=== PATIENT | male | born 1980 | race African-American/Black ===

== ENCOUNTER 2016-12-30 11:30 | Inpatient (IN) | payer OTHER ==
[~2016-12-30] VITALS: Ht 198.1 cm; Wt 100.7 kg
--- NOTE | ~2016-12-30 | HP ---
Unit #: [id number] #: [id number] Patient: ALIVIA WAGNER [id number] [facility]. [place], [place] [address] [id number] I MR#: [id number] NAME: ALIVIA WAGNER. ROOM: 76520 Age: 36 Sex: M Admission Date: 12/30/2016 : 1980 Attending Physician: Bernardo Martell M.D. Primary Care Physician: No Primary Care Physician HISTORY AND PHYSICAL HISTORY AND EXAM Mr. Wagner is an otherwise healthy 36-year-old male who presented to the emergency room with a swollen tender left forearm with spontaneous drainage of a necrotizing infection. He states this began about a week ago as sort of a pimple or a boil and he was putting compresses on it. It finally has spontaneously drained but the drainage is the foul smell of underlying necrosis. He denies any trauma, IV drug abuse, spider bite or other injury. He does not have a history of soft tissue infections. 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 He denies any fever or chills but is having exquisite pain and cannot straighten his left arm. He does have normal motor and sensory function of the hand. PAST MEDICAL HISTORY He denies any prior medical history. ALLERGIES No allergies to medication. MEDICATIONS No medications. FAMILY HISTORY He is unaware of any chronic or inheritable diseases. 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 He smokes about two packs a day, denies the use of alcohol. He is an occasional user of marijuana. REVIEW OF SYSTEMS No fever, chills or night sweats. PHYSICAL EXAMINATION VITAL SIGNS: On exam temperature is 98.6, pulse 111, respirations 16, blood pressure 146/96. GENERAL: Awake, alert and oriented and pleasant and cooperative. HEENT: Unremarkable. CARDIAC EXAM: Regular rhythm without murmur. LUNGS: Clear. ABDOMEN: Is soft. EXTREMITIES: Left forearm from the wrist to the mid upper arm is swollen. It is erythematous and tender. There is an opening medically with very necrotic foul-smelling drainage. Again, he has normal motor and sensory to the hand. Unit #: [id number] #: [id number] Patient: ALIVIA WAGNER NEUROLOGICALLY: Grossly intact. DIAGNOSTIC STUDIES LABORATORY: Hemoglobin 11.6, white count 9200, platelets 287,000. Comprehensive metabolic panel generally unremarkable. Lactic acid is 1.6. ASSESSMENT AND PLAN Patient has a severe necrotizing infection of the left forearm radiating up to the mid upper extremity. He may have underlying necrotizing fasciitis or myonecrosis. I discussed with the patient that he needs an extensive incision, drainage and debridement and he will require some long-term postoperative wound care. He understands and agrees to proceed. I have spoken to the operating room. We plan on emergent incision, drainage and debridement. Dictated by Bernardo Martell M.D. GERARD/yogi TD: 12/30/2016 17:07 JOB #: [id number] HISTORY AND PHYSICAL Page 1 of 1 X Bernardo Martell MD HISTORY AND PHYSICAL
--- NOTE | ~2016-12-30 | OR ---
Unit #: [id number] #: [id number] Patient: ALIVIA WAGNER [id number] [address] [place], [place] [address] [id number] I MR#: [id number] NAME: ALIVIA WAGNER. ROOM: 220 Date of Procedure: 12/30/2016 Admission Date: 12/30/2016 Surgeon: Bernardo Martell M.D. : 1980 Attending Physician: Bernardo Martell M.D. Primary Care Physician: Primary Care Physician No OPERATIVE REPORT PREOPERATIVE DIAGNOSIS Necrotizing infection in left medial forearm and upper extremity. POSTOPERATIVE DIAGNOSIS Necrotizing infection in left medial forearm and upper extremity. PROCEDURE PERFORMED Incision and drainage of a 15 x 8 cm abscess cavity with skin necrosis and subcutaneous necrosis extending down to the muscle of the left medial forearm. Aerobic and anaerobic cultures sent. ANESTHESIA General endotracheal anesthesia. ESTIMATED BLOOD LOSS 500 mL. INDICATIONS FOR PROCEDURE This 36-year-old gentleman presented to the ER with a markedly swollen left forearm that had a spontaneous area of skin necrosis that was draining foul-smelling and necrotic fluid and purulent drainage. The patient denied any trauma or IV drug abuse. However, he did have some keloids on his hands and antecubital fossa, making us concerned about the possibility of IV drug abuse. DESCRIPTION OF PROCEDURE The patient was transported from the emergency room to the operating room and after induction of general endotracheal anesthesia, his left arm was abducted on an operating arm board and prepped and draped in usual sterile fashion. He had already received IV antibiotics in the emergency room of vancomycin and Zosyn. Through the necrotic open area in the medial part of the forearm, I expressed some of the very foul smelling dirty dishwater looking fluid. We had this cultured. In doing so, some fatty necrosis and tissue came out through the wound. After it was prepped and draped, I took a large Cindy and probed through the open area to see the extent of the abscess cavity. A 10-blade was used to perform a wedge excision to excise the clearly necrotic skin and opened up the abscess cavity. I dissected down through the subcutaneous tissue sharply, all the way down to the muscle. The open area measured 15 x 8 cm and there was some undermining of nonviable subcutaneous tissue of fascia and fat that Unit #: [id number] #: [id number] Patient: ALIVIA WAGNER was clearly . Once this was all debrided and all the nonviable tissue excised, I irrigated and obtained hemostasis. There were multiple vessels that had to be suture ligated with 2-0 Vicryl pop-off sutures and then, I used the cautery to obtain hemostasis from the other soft tissue. Once I had adequate hemostasis, I copiously irrigated with saline and suctioned all the fluid out and rechecked for hemostasis. Once hemostasis was adequate, the open wound was packed with two Kerlix sponges soaked in Betadine and wrung out. Stay sutures of #1 Vicryl were placed to hold the packing in place and help effect postop hemostasis. Dry dressing and sponges were placed over the open area. Kerlix wrap was placed, followed by a Coban wrap. Neurovascular check was normal in postop recovery. Sponges and needle counts were correct. The patient tolerated the procedure well and was transported to recovery in stable condition. There was no family available at the end of the case to discuss the findings with. Dictated by... Nilda Heath/alexey TD: 12/31/2016 05:17 JOB #: [id number] OPERATIVE REPORT Page 1 of 1 X Bernardo Martell MD PROCEDURE OPERATIVE NOTE
--- NOTE | ~2016-12-30 | DS ---
Unit #: [id number] #: [id number] Patient: ALIVIA WAGNER [id number] [address] [place], [place] [address] [id number] I MR#: [id number] NAME: ALIVIA WAGNER. ROOM: 220 Age: 36 Sex: M Admission Date: 12/30/2016 : 1980 Discharge Date: 01/02/2017 Attending Physician: Bernardo Martell M.D. Primary Care Physician: Primary Care Physician No DISCHARGE SUMMARY DISCHARGE DIAGNOSIS Large left antecubital and forearm abscess secondary to intravenous substance abuse. OPERATIVE PROCEDURE Extensive debridement to muscle of left medial forearm and incision and drainage of large abscess. DISCHARGE MEDICATIONS 1. Doxycycline 100 mg p.o. b.i.d. 2. Augmentin 875 mg one p.o. b.i.d. 3. Lortab 10/325 one p.o. q.4 hours p.r.n. pain. HISTORY OF PRESENT ILLNESS AND HOSPITAL COURSE This is a 36-year-old black male, substance abuse, left arm abscess, who was admitted. It was noted to be very extensive and large. Intravenous antibiotics were given. The patient was taken to surgery. Extensive debridement was performed in the patient's left forearm and antecubital space per Dr. Martell. This was opened, drained, and cleaned out as best as possible down to the level of the muscle below the fascia. After this was done, wound was packed. Antibiotics were given. Cultures for gram-positive cocci and gram-negative rods. The patient was placed on appropriate intravenous and oral antibiotics. The patient is able to do dressing changes at home. There appears to be no more purulent material. We will change him at home twice daily. He will be seen for followup either in the wound clinic or Dr. Martell's office depending where the patient could go. Dictated by... Nilda Mcqueen/alexey TD: 01/03/2017 08:07 JOB #: [id number] Unit #: [id number] #: [id number] Patient: ALIVIA WAGNER DISCHARGE SUMMARY Page 1 of 1 X Amol Moreno MD DISCHARGE SUMMARY
--- NOTE | ~2016-12-30 | CR132 ---
[facility] A Service [facility] RADIOLOGY TEXT RESULTS PATIENT: ALIVIA WAGNER LOCATION: [facility] : [birth year] UNIT #: [id number] AGE: [address]: Bernardo Martell MD SEX: M ORDER DR: [id number] [facility] [address] [place], [place] [address] [id number] MR#: [id number] Acc #: [id number] NAME: ALIVIA WAGNER : 1980 SEX: M STUDY DATE/TIME: 12/30/2016 14:11 UNIT: [facility] ROOM: 73686 STUDY DESCRIPTION: CR Forearm 2 View Lt Attending Physician: Bernardo Martell M.D. Ordering Physician: Tim Tiwari D.O. Primary Care Physician: Primary Care Physician No MEDICAL IMAGING REPORT This report is preliminary unless electronic signature is present EXAM Left forearm HISTORY Pain and swelling for a week with open wound proximal forearm. COMPARISON STUDIES None. FINDINGS AP and lateral views of the left forearm were obtained. Bones are normal. There are no metal foreign bodies. In the proximal dorsal forearm soft tissues, there are multiple air bubbles and on the lateral view, they extend over a 13 cm length along the long axis of the bone. On the AP view, the air bubbles are in both the medial and lateral soft tissues. IMPRESSION 1. No foreign body identified. 2. Numerous soft tissue air bubbles in the proximal third of the forearm, extending to the elbow, consistent with cellulitis and infection. Dictated by... Kolby Morfin M.D. THIS IS AN ELECTRONICALLY VERIFIED REPORT Kolby Morfin M.D. at 12/30/2016 8:18 PM FEL/pcl TD: 12/30/2016 19:28 [facility] A [facility] RADIOLOGY TEXT RESULTS PATIENT: ALIVIA WAGNER LOCATION: [facility] : [birth year] UNIT #: [id number] AGE: [address]: Bernardo Martell MD SEX: M ORDER DR: THEO #: [id number] MEDICAL IMAGING REPORT Page 1 of 1 COPY
--- NOTE | ~2016-12-30 | CR156 ---
[facility]. [facility] A Service of [facility] RADIOLOGY TEXT RESULTS PATIENT: ALIVIA WAGNER LOCATION: [place] [id number] : [birth year] UNIT #: [id number] AGE: [address]: Bernardo Martell MD SEX: M ORDER DR: [id number] [facility] [address] [place], [place] [address] [id number] MR#: [id number] Acc #: [id number] NAME: ALIVIA WAGNER : 1980 SEX: M STUDY DATE/TIME: 12/30/2016 14:16 [facility] RO[facility]: [address] STUDY DESCRIPTION: CR Humerus Min 2 View Lt Attending Physician: Bernardo Martell M.D. Ordering Physician: Tim Tiwari D.O. Primary Care Physician: Primary Care Physician No MEDICAL IMAGING REPORT This report is preliminary unless electronic signature is present EXAM Left humerus INDICATIONS Pain, severe swelling, infection in proximal forearm and elbow region for one week. FINDINGS The AP and lateral views of humerus show the bone to be normal. There is air in the proximal forearm. Please see the forearm report. There are 2 linear metal foreign bodies suggested in the soft tissues of the distal upper arm; one is about 8 x 1 mm and the other is about 4 x 1 mm. The smaller one is near the elbow crease and the other one is about 3-4 cm above the elbow crease. These are in the volar soft tissues. Dictated by... Kolby Morfin M.D. THIS IS AN ELECTRONICALLY VERIFIED REPORT Kolby Morfin M.D. at 12/30/2016 8:18 PM FEL/to TD: 12/30/2016 19:56 JOB #: [id number] MEDICAL IMAGING REPORT Page 1 of 1 COPY
[2016-12-30 12:22] LABS: BASOPHIL% 0.2 % (0-2.5); EOSINOPHIL% 0.3 % (0.0-7.0); HEMATOCRIT 34.6 % (38.0-50.0); HEMOGLOBIN 11.6 gm/dL (13.0-16.0); LYMPHOCYTE# 1.2 X10e3 (1.0-3.5); LYMPHOCYTE% 12.9 % (17.0-45.0); MEAN CELL VOLUME 95.4 FL (83-96); MEAN CORPUSCULAR HGB CONC 33.6 g/dL (30-36); MEAN PLATELET VOLUME 6.7 FL (6.5-11.5); MONOCYTE# 1.4 X10e3 (0-1.0); MONOCYTE% 14.7 % (3.0-12.0); NEUTROPHIL# 6.6 X10e3 (1.5-7.1); NEUTROPHIL% 71.9 % (40-75); PLATELET COUNT 287 X10e3 (140-420); RED BLOOD COUNT 3.63 X10e (3.90-5.60); RED CELL DISTRIBUTION WIDTH 14.7 % (11.0-15.5); WHITE BLOOD COUNT 9.2 X10e3 (4.0-10.5)
[2016-12-30 12:25] LABS: DIFF IND NO
[2016-12-30 12:43] LABS: ALBUMIN SERUM 3.1 g/dL (3.5-5.0); BILIRUBIN,TOTAL 0.6 mg/dL (0.2-2.0); BUN/CREATININE RATIO 11.53; CALCIUM SERUM 8.6 mg/dL (8.4-10.2); CREATININE SERUM 1.3 mg/dL (0.6-1.4); GLOM FILT RATE Estimated 71.2 mL/min (>60); POTASSIUM 3.7 mmol/L (3.5-5.1); PROTEIN TOTAL SERUM 7.1 g/dL (6.0-8.3)
[2016-12-31 06:26] LABS: HEMOGLOBIN 9.7 gm/dL (13.0-16.0); MEAN CELL VOLUME 94.1 FL (83-96); MEAN CORPUSCULAR HEMOGLOBIN 32.5 PG (28-34); MEAN CORPUSCULAR HGB CONC 34.6 g/dL (30-36); MEAN PLATELET VOLUME 6.4 FL (6.5-11.5); RED BLOOD COUNT 2.98 X10e (3.90-5.60); RED CELL DISTRIBUTION WIDTH 14.9 % (11.0-15.5); WHITE BLOOD COUNT 7.6 X10e3 (4.0-10.5)
[2016-12-31 06:59] LABS: BUN/CREATININE RATIO 11.53; CALCIUM SERUM 8.3 mg/dL (8.4-10.2); CREATININE SERUM 1.3 mg/dL (0.6-1.4); GLOM FILT RATE Estimated 82.5 mL/min (>60); MAGNESIUM 2.3 mg/dL (1.6-3.0); PHOSPHOROUS 4.2 mg/dL (2.5-4.6)
[2017-01-02] MEDS ORDERED: LORTAB 10-3251 EACH PO (10:32)
[2017-01-02] MEDS ORDERED: DOXYCYCLINE HY100 M3 PO (10:32)
[2017-01-02] MEDS ORDERED: AUGMENTIN PO (10:33)
== END 2017-01-02 13:45 | disposition home or self-care (01) | DRG 572 ==
LOC: CED 11:30 → CEDOF 15:01 → CED 15:37 → CEDOF 20:14 → C2A 20:14
PROVIDERS: Emergency Medicine; Specialist
PROC: 0HBEXZZ Excision of Left Lower Arm Skin, External Approach (ICD-10-PCS; 2016-12-30)
PROC: 0J9H0ZZ Drainage of Left Lower Arm Subcutaneous Tissue and Fascia, Open Approach (ICD-10-PCS; principal; 2016-12-30 17:00)
DX: L02.414 Cutaneous abscess of left upper limb (principal); F17.200 Nicotine dependence, unspecified, uncomplicated; F19.10 Other psychoactive substance abuse, uncomplicated
CPT/HCPCS: 36415; 73060; 73090; 80048; 80053; 80202; 83605; 83735; 84100; 85025; 85027; 87040; 87070; 87075; 87076; 87205; 99284; J1100; J1170; J1885; J2250; J2270; J2405; J2543; J3010; J3370